=== PATIENT | male | born 1995 | race Caucasian/White ===

== ENCOUNTER 2022-06-01 10:59 | Emergency (ER) | payer OTHER ==
[~2022-06-01] VITALS: Ht 175.3 cm; Wt 77.1 kg
[2022-06-01 11:07] VITALS: BP_SYST 128
--- NOTE | 2022-06-01 11:07 | NUR ---
Patient to ER ch1 to gon for evaluation. Side rails up.
--- NOTE | 2022-06-01 11:17 | NUR ---
Written and verbal consent obtained from patient for blood alcohol, name and verified by patient. Disinfected patient's skin with betadine that did not contain alcohol or other volatile organic compound. Collected the blood from the subject named by venipuncture, in the presence of Officer Greta. Used a sterile, dry hypodermic needle and dry vacuum blood collection. One dry vacuum blood collection was supplied by the officer named above. Withdrew a specimen of blood from Right antecubital of the subject named above. Inverted blood tubes several times to ensure that the preservative and anticoagulant were thoroughly mixed in the blood specimen. I initialed both blood tube labels for identification. The labeled blood tubes were handed directly to the Officer named above. The blood tubes stopper remained in place while I had possession of the blood tubes. The Officer placed tubes into envelope and sealed it in my presence. Envelope initialed by myself and Officer named above. Patient tolerated well, bandage applied, and bleeding controlled.
--- NOTE | 2022-06-01 11:27 | NUR ---
Patient given written and verbal discharge instructions and verbalizes understanding. ER MD discussed with patient the results and treatment provided. Patient in stable condition. ID arm band removed. NO Rx of given. Patient educated on pain management and to follow up with PMD. Pain Scale 0. Opportunity for questions provided and answered. Medication side effect fact sheet provided.
== END 2022-06-01 11:27 ==
LOC: SED 10:59
DX: Z02.83 Encounter for blood-alcohol and blood-drug test (principal); Z79.899 Other long term (current) drug therapy